=== PATIENT | male | born 1960 | race American Indian/Alaskan Native ===

== ENCOUNTER 2017-02-24 07:22 | Observation (INO) | payer OTHER ==
[2017-02-24 07:39] VITALS: TEMP 97.8
--- NOTE | 2017-02-24 07:53 | C.PDOC ---
History Of Present Illness Patient SOHA, apparently found passed out in his car [place] [address] As per EMS, patient had pinpoint pupils and had lit cigarette burning in the car. He was given 2mg intranasal Narcan in the field, arrives to ED awake but drowsy appearing. He admits he "tried heroin" this morning before driving to work. Patient also states he did not take his Norvasc this morning. Time Seen by Provider: 02/24/17 07:23 Chief Complaint (Nursing): Substance Abuse History Per: Patient, EMS History/Exam Limitations: clinical condition Onset/Duration Of Symptoms: Unknown Current Symptoms Are (Timing): Better Modifying Factor(s): Narcotics (heroin) Severity: Moderate Past Medical History Reviewed: Historical Data, Nursing Documentation, Vital Signs Vital Signs: Last Vital Signs Temp 97.8 F 02/24/17 09:42 Pulse 86 02/24/17 09:42 Resp 16 02/24/17 09:42 BP 156/90 H 02/24/17 09:42 Pulse Ox 98 02/24/17 09:42 - Medical History PMH: HTN, Hyperlipidemia, Schizophrenia (schizoeffective) Family History: States: No Known Family Hx - Social History Hx Alcohol Use: Yes Hx Substance Use: Yes - Immunization History Hx Tetanus Toxoid Vaccination: No Hx Influenza Vaccination: No Hx Pneumococcal Vaccination: No Review Of Systems Except As Marked, All Systems Reviewed And Found Negative. Cardiovascular: Negative for: Chest Pain Respiratory: Negative for: Shortness of Breath Gastrointestinal: Negative for: Nausea, Vomiting, Abdominal Pain, Diarrhea Psych: Positive for: Other (heroin use). Negative for: Suicidal ideation Physical Exam - Physical Exam Appears: Non-toxic, Other (awake, drowsy) Head: Atraumatic, Normacephalic Eye(s): bilateral: Other (pinpoint pupils B/L) Oral Mucosa: Moist Cardiovascular: Rhythm Regular (tachycardic ) Respiratory: Normal Breath Sounds, No Rales, No Rhonchi, No Wheezing Gastrointestinal/Abdominal: Normal Exam, Bowel Sounds, Soft, No Tenderness Extremity: Normal ROM, No Tenderness, No Pedal Edema Extremity: Bilateral: Atraumatic Neurological/Psych: Other (awake, alert, drowsy, moving all 4 extremities spontaneously) ED Course And Treatment - Laboratory Results Result Diagrams: 02/24/17 07:52 02/24/17 07:52 ECG: Interpreted By Me, Viewed By Me (sinus tachycardia 11bpm, left axis devation, no acute ST/T wave changes) ECG Interpretation: Abnormal O2 Sat by Pulse Oximetry: 98 (RA) Pulse Ox Interpretation: Normal - Radiology CXR: Interpreted by Me, Viewed By Me CXR Interpretation: Yes: No Acute Disease. No: Infiltrates Progress Note: Blood work, UA, UDS, EKG ordered and reviewed. 9:35am- Patient currently AAOx3, ambulating normally in the ED. He is clinically sober at this time, and denies SI/HI. Patient requesting to be discharged home. Patient instructed to take his Norvasc when he gets home, and to follow up with PMD/ clinic in 1-2 days. He understands he should return to ED if he develops any concerning symptoms. Disposition Counseled Patient/Family Regarding: Studies Performed, Diagnosis, Need For Followup - Disposition Disposition: HOME/ ROUTINE Disposition Time: 09:40 Condition: STABLE - Clinical Impression Clinical Impression: Heroin abuse
[2017-02-24 07:55] LABS: BASO # 0.1 K/uL (0.0-0.2); EOS # 0.2 K/uL (0.0-0.7); EOS % 1.8 % (0.0-4.0); HEMATOCRIT 45.6 % (35.0-51.0); LYMPH # 4.8 K/uL (1.0-4.3); MEAN CELL VOLUME 83.4 fL (80.0-94.0); MEAN CORPUSCULAR HEMOGLOBIN 28.2 pg (27.0-31.0); MEAN CORPUSCULAR HGB CONC 33.8 g/dL (33.0-37.0); MEAN PLATELET VOLUME 6.6 fL (7.2-11.7); MONO % 9.7 % (0.0-10.0); NRBC % 0.1 % (0.0-2.0); RED CELL DISTRIBUTION WIDTH 15.8 % (11.5-14.5); WHITE BLOOD COUNT 10.3 K/uL (4.8-10.8)
[2017-02-24 08:05] LABS: CHLORIDE 99 mmol/L (98-107); POTASSIUM 3.6 mmol/L (3.6-5.2); SODIUM 135 mmol/L (132-148)
[2017-02-24 08:07] LABS: ALB/GLOB RATIO 1.3 (1.0-2.1); ALKALINE PHOSPHATASE 99 U/L (38-126); ALT/SGPT 33 U/L (21-72); AST/SGOT 42 U/L (17-59); BILIRUBIN,TOTAL 1.3 mg/dL (0.2-1.3); BLOOD UREA NITROGEN 19 mg/dL (9-20); CARBON DIOXIDE 24 mmol/L (22-30); GFR AFRICAN-AMERICAN 59; TOTAL PROTEIN 7.9 g/dL (6.3-8.3)
[2017-02-24 08:08] LABS: ALCOHOL SERUM < 10 mg/dl (0-10); CALCIUM 8.8 mg/dl (8.6-10.4); GLUCOSE,RANDOM 187 mg/dL (75-110)
[2017-02-24 08:19] LABS: GRANULAR CAST 1 /lpf (0-1); RBC URINE 8 /hpf (0-3); URINE BILIRUBIN NEGATIVE (NEGATIVE); URINE BLOOD 1+ (NEGATIVE); URINE COLOR Yellow (YELLOW); URINE GLUCOSE (UA) 1+ mg/dL (Normal); URINE KETONE TRACE mg/dL (NEGATIVE); URINE LEUKOCYTE ESTERASE 1+ Leu/uL (Negative); URINE PROTEIN 2+ mg/dL (NEGATIVE); URINE UROBILINOGEN NORMAL mg/dL (0.2-1.0); WBC URINE 10 /hpf (0-5)
[2017-02-24 09:43] VITALS: BP 156/90; PULSE 86; RESP 16
--- NOTE | 2017-02-24 11:35 | CARD ---
APPROVED REPORT EKG Measurement Heart [id number] <Conclusion> Sinus tachycardia Possible Left atrial enlargement Septal infarct, age undetermined Abnormal ECG
--- NOTE | 2017-02-24 12:50 | RAD ---
PROCEDURE: CHEST RADIOGRAPH, 1 VIEW HISTORY: overdose COMPARISON: None available. FINDINGS: LUNGS: Bibasilar atelectasis and/or infiltrates. PLEURA: No pneumothorax or pleural fluid seen. CARDIOVASCULAR: Cardiomegaly. OSSEOUS STRUCTURES: No significant abnormalities. VISUALIZED UPPER ABDOMEN: Normal. OTHER FINDINGS: None. IMPRESSION: Bibasilar atelectasis and/or infiltrates. Cardiomegaly.
[2017-03-03 09:44] VITALS: O2SAT 98
== END 2017-02-24 09:40 | disposition home or self-care (01) ==
LOC: C.ER 07:22 → C.9OBSV 08:48
PROVIDERS: ADMIT Emergency Medicine; ATTEND Emergency Medicine
DX: F11.10 Opioid abuse, uncomplicated (principal); I10 Essential (primary) hypertension; E78.5 Hyperlipidemia, unspecified; F25.9 Schizoaffective disorder, unspecified
CPT/HCPCS: 71010; 80053; 81001; 82550; 82553; 82948; 84484; 85025; 93005; 99285; G0378; G0480